=== PATIENT | female | born 1945 | race Two or more races ===

== ENCOUNTER 2021-01-20 15:06 | Inpatient (IN) | payer MEDICARE ==
[2021-01-20] VITALS (21 sets, daily range): BP systolic 38–120; BP diastolic 19–69
[~2021-01-20] VITALS: Ht 167.6 cm; Wt 56.2 kg
--- NOTE | 2021-01-20 15:44 | NUR ---
URINE COLLECTED AND SENT TO LAB
--- NOTE | 2021-01-20 15:48 | NUR ---
Brought by EMS to the emergency department, called 911. The patient was noted to be confused per report, her initial blood sugar in the field showed high According to the , the patient was last known well was yesterday, at about 10 AM Also, per report by the paramedics-the patient had an empty bottle of Percocet at bedside The patient is also known diabetic, the initial blood sugar showed HIGH
--- NOTE | 2021-01-20 15:49 | NUR ---
Hep-Lock initiated, septic work-up done-blood works sent to lab
[2021-01-20] MEDS ORDERED: CEFTRIAXONE 1GM BAG (ER ONLY) 50 ML IV ONE ×2 (16:00→16:12)
[2021-01-20] MEDS ORDERED: IV NS 0.9% 1,000 ML BAG IV ONE ×2 (16:00→17:30)
--- NOTE | 2021-01-20 16:27 | NUR ---
COVID ANTIGEN SWAB DONE AND SENT TO LAB
[2021-01-20 16:31] LABS: BILIRUBIN,URINE NEGATIVE (NEGATIVE); COLOR,URINE YELLOW (YELLOW); LEUKOCYTE ESTERASE ,URINE NEGATIVE (NEGATIVE); NITRITE, URINE NEGATIVE (NEGATIVE); PROTEIN,URINE 30 mg/dl (NEGATIVE); UGLUCOSE >=1000 mg/dL (NEGATIVE); UROBILINOGEN,URINE 0.2 EU/dL (0.2)
[2021-01-20 16:40] LABS: BASOPHILS # (AUTO) 0.1 K/uL (0.0-0.2); HEMATOCRIT 48 % (33-45); LYMPHOCYTES # (AUTO) 1.5 K/uL (0.8-4.8)
[2021-01-20 16:40] LABS: ABG BASE EXCESS -31.6 mmol/L; ABG OXYGEN SATURATION 89.3 % (92.0-98.5); ABG PH 6.804 (7.350-7.450); ABG PO2 69.9 mmHg (75.0-100.0); AaDO2 63.1 mmHg; COHb 0.1 % (0.5-1.5); MetHb 0.6 % (0.0-1.5); O2Hb 88.7 % (94.0-97.0); SITE, ABG Right Radial; VENT MODE, BG ROOM AIR
[2021-01-20 16:45] LABS: ALANINE AMINOTRANSFERASE 36 U/L (12-78); ALBUMIN 3.4 g/dL (3.4-5.0); ALKALINE PHOSPHATASE 122 U/L (46-116); ASPARTATE AMINOTRANSFERASE 26 U/L (15-37); BILIRUBIN,DIRECT 0.1 mg/dL (0.0-0.2); BILIRUBIN,TOTAL 0.4 mg/dL (0.2-1.0); CALCIUM, SERUM 8.5 mg/dL (8.5-10.1); CHLORIDE 91 mmol/L (98-107); CREATININE 2.2 mg/dL (0.6-1.3); POTASSIUM 4.6 mmol/L (3.5-5.1); SODIUM SERUM 126 mmol/L (136-145); TOTAL PROTEIN, SERUM 7.3 g/dL (6.4-8.2); UREA NITROGEN, BLOOD 27 mg/dL (7-18)
[2021-01-20 16:49] LABS: BASOPHILS % (AUTO) 0.3 % (0.0-2.0); HEMOGLOBIN 14.7 g/dL (11.5-14.8); MEAN CORPUSCULAR HGB CONC 30 g/dl (31.0-36.0); MEAN CORPUSCULAR VOLUME 102 fL (82-100); MONOCYTES # (AUTO) 3.1 K/uL (0.1-1.30); MONOCYTES % (AUTO) 12.2 % (2.0-12.0); NEUTROPHILS # (AUTO) 20.6 K/uL (1.8-8.9); NEUTROPHILS % (AUTO) 81.5 % (43.0-81.0); PLATELET COUNT (AUTO) 322 K/uL (150-450); RED BLOOD CELL COUNT(AUTO) 4.75 MIL/uL (4.0-5.2); WHITE BLOOD COUNT (AUTO) 25.3 K/uL (4.3-11.0)
[2021-01-20 16:54] LABS: CARBON DIOXIDE 7 mmol/L (21-32); GLUCOSE 789 mg/dL (74-106)
[2021-01-20 16:55] LABS: BACTERIA,URINE RARE /HPF (None Seen); FINE GRANULAR CASTS,URINE Few /LPF (None Seen); HYALINE CASTS, URINE Few /LPF (None Seen); MUCUS,URINE Few /LPF (None Seen)
[2021-01-20] MEDS ORDERED: ATOR40TA PO (17:15)
[2021-01-20] MEDS ORDERED: ALPR1TAB7 PO (17:15)
[2021-01-20] MEDS ORDERED: LEVO100T9 PO (17:15)
[2021-01-20] MEDS ORDERED: GLIM2TAB31 PO (17:15)
[2021-01-20] MEDS ORDERED: OXYC-133 PO (17:15)
[2021-01-20] MEDS ORDERED: TELM40TA8 PO (17:15)
--- NOTE | 2021-01-20 17:19 | NUR ---
room [id number]
[2021-01-20 17:29] LABS: BAND % (MANUAL) 6 % (0.0-5.0); LYMPHOCYTES % (MANUAL) 7 % (16-48); MONOCYTES % (MANUAL) 9 % (0-11.0); NEUTROPHILS % (MANUAL) 78 (42-76)
[2021-01-20] MEDS ORDERED: INSULIN REGULAR, HUMAN 100 UNIT in IV NS 0.9% 99 ML IV PRN ×2 (17:30→18:00)
[2021-01-20] MEDS ORDERED: Sodium Bicarbonate 150 MEQ in IV NS 0.9% 1,000 ML IV PRN (17:30)
--- NOTE | 2021-01-20 17:31 | NUR ---
report given to Mccarr RN - continue plan of care.
[2021-01-20] MEDS ORDERED: CEFTRIAXONE 1 G in IV D5W 50 ML IV SCH (18:00)
[2021-01-20] MEDS ORDERED: Z GUARD REMEDY 2 OZ OINT TP PRN (18:00)
[2021-01-20] MEDS ORDERED: ONDANSETRON HCL/PF 4 MG/2 ML VIAL IVP PRN (18:00)
--- NOTE | 2021-01-20 18:15 | NUR ---
LAND RESOURCE SPECIALIST NOTES PATIENT ADMITTED FROM ER, TELE SR-78 ,ALTERED MENTAL STATUS, DKA.T-96.6 COVERED WITH HOT BLANKET, STARTED INSULIN DRIP 7U, AND 2AMPS OF BICARB 125ML/HR. ON LEFT HAND INTACT. BOTELLO DRAINING VIA GRAVITY. BS SHOWS HI IN THE GLUCOMETER GET ORDER VIA GLUCOSE FROM LAB. ENDORSED ONCOMING NURSE CONTINUE COMPUTER QUESTIONER ASSESSMENT.
[2021-01-20] MEDS: Sodium Bicarbonate 100 MEQ in IV 1/2NS 1000 ML 1,000 ML IV SCH (18:26)
[2021-01-20] MEDS ORDERED: IV NS 0.9% 1,000 ML IV ONE (18:30)
--- NOTE | 2021-01-20 18:39 | NUR ---
RN NOTES BG SHOWING HI , DR ACEVEDO NOTIFIED , INSULIN DRIP STARTED AT 7U /HR PER DR CAMARENA ORDER .
[2021-01-20] MEDS: ENOXAPARIN SODIUM 30 MG/0.3 ML DISP.SYRIN SQ SCH (18:41)
--- NOTE | 2021-01-20 19:00 | NUR ---
RN NOTES UNABLE TO GET BS AT THIS TIME IN GLUCOMETER SHOWS HIGH, ORDERED GLUCOSE FROM LAB. INFUSING INSULIN DRIP 7U/HR.
[2021-01-20] MEDS: BLOOD SUGAR DIAGNOSTIC 1 EACH STRIP IN SCH ×6 (19:14→23:17)
--- NOTE | 2021-01-20 19:57 | NUR ---
RT NOTE Stat ABG taken and critical results reported to MD. Will continue to monitor closely.
[2021-01-20 20:05] LABS: ABG BASE EXCESS -29.6 mmol/L; ABG PCO2 9.3 mmHg (35.0-45.0); ABG PH 6.905 (7.350-7.450); AaDO2 43.3 mmHg; COHb 0.4 % (0.5-1.5); MetHb 0.3 % (0.0-1.5); O2Hb 98.3 % (94.0-97.0); SITE, ABG Right Brachial
[2021-01-20] MEDS: SODIUM BICARBONATE SYR 50 MEQ/50 ML DISP.SYRIN IV STA ×2 (20:15→20:38)
[2021-01-20] MEDS: INSULIN REGULAR, HUMAN 100 UNIT in IV NS 0.9% 99 ML IV PRN (20:15)
--- NOTE | 2021-01-20 20:30 | NUR ---
RN NOTES 1935 PM - RECEIVED DKA PATIENT WITH ALGORITHM #2 PROTOCOL FOR INSULIN DRIP. VERY LETHARGIC, UNABLE TO COMMUNICATE, WITH SHALLOW BREATHING ON O2 3LPM VIA NC SATURATION 96%. SR ON MONITOR. UNABLE TO READ TEMPERATURE ORALLY AND AXILLARY, RECTAL TEMP PLACED WITH 89.2 DEGREE FHARENHEIGHT. VICENTE DOMI INITIATED. BS CHECKED READ "HI" AT THIS TIME, AND ABG SHOWS BICARB OF 1.8 DESPITE OF PATIENT IS RUNNING BICARB DRIP AT 125 ML/HR INFORMED MATY BROOKS REVOLVING INVENTORY CLERK PER MATY SHE WILL CHANGE THE ORDER. 2009 PM - RECEIVED NEW ORDER TO PUSH I AMP OF BICARB RIGHT NOW, AND CHANGED THE PROTOCOL TO BS X 2 /100 = INSULIN DRIP RATE. NOTED AND CARRIED OUT ORDER. PATIENT IS MORE RESPONSIVE AT THIS TIME TO TACTILE STIMULI BUT UNABLE TO STATE HER NAME. WILL CLOSELY MONITOR.
[2021-01-20 20:44] LABS: CALCIUM, SERUM 7.9 mg/dL (8.5-10.1); CHLORIDE 101 mmol/L (98-107); CREATININE 1.9 mg/dL (0.6-1.3); POTASSIUM 3.8 mmol/L (3.5-5.1); SODIUM SERUM 135 mmol/L (136-145); UREA NITROGEN, BLOOD 28 mg/dL (7-18)
[2021-01-20 20:47] LABS: CARBON DIOXIDE 4 mmol/L (21-32); GLUCOSE 620 mg/dL (74-106)
--- NOTE | 2021-01-20 22:10 | NUR ---
RT NOTE ABG taken and critical Results reported to COIL MACHINE SUPERVISOR. Will continue to monitor closely
[2021-01-20 22:12] LABS: ABG BASE EXCESS -23.3 mmol/L; ABG PCO2 9.4 mmHg (35.0-45.0); ABG PH 7.137 (7.350-7.450); ABG PO2 147.3 mmHg (75.0-100.0); AaDO2 69.9 mmHg; COHb 0.7 % (0.5-1.5); MetHb 0.2 % (0.0-1.5); O2Hb 98.1 % (94.0-97.0); SITE, ABG Right Brachial; VENT MODE, BG Nasal Cannula
[2021-01-20] MEDS ORDERED: SODIUM BICARBONATE SYR 50 MEQ/50 ML DISP.SYRIN IV STA (22:30)
--- NOTE | 2021-01-20 22:30 | NUR ---
RN NOTES ABG RECHECKED BY RT WITH BICARB 3.1 WITH NEW ORDER TO PUSH ANOTHER 1 AMP OF BICARB AND REPEAT ABG IN 1 HOUR. NOTED AND CARRIED OUT ORDER.
[2021-01-21] VITALS (50 sets, daily range): BP systolic 80–155; BP diastolic 44–115
[2021-01-21] MEDS: BLOOD SUGAR DIAGNOSTIC 1 EACH STRIP IN SCH ×24 (00:08→23:03)
[2021-01-21 00:13] LABS: CALCIUM, SERUM 7.8 mg/dL (8.5-10.1); CHLORIDE 104 mmol/L (98-107); CREATININE 1.8 mg/dL (0.6-1.3); POTASSIUM 3.3 mmol/L (3.5-5.1); SODIUM SERUM 141 mmol/L (136-145); UREA NITROGEN, BLOOD 32 mg/dL (7-18)
[2021-01-21 00:15] LABS: CARBON DIOXIDE 10 mmol/L (21-32); GLUCOSE 372 mg/dL (74-106)
--- NOTE | 2021-01-21 00:22 | NUR ---
RT NOTE ABG TAKEN AND CRITICAL RESULTS NOTED. ABG REPORTED TO VASCULAR SURGEON. WILL CONTINUE TO MONITOR CLOSELY.
--- NOTE | 2021-01-21 00:30 | NUR ---
RN NOTES BICARB NOW 5.1 AFTER ABG RE-CHECK BY RT. DR. BROOKS ORDERED TO CONTINUE BICARB GTTS FOR NOW. ORDER NOTED AND CARRIED OUT.
[2021-01-21 00:33] LABS: ABG BASE EXCESS -18.1 mmol/L; ABG OXYGEN SATURATION 98.8 % (92.0-98.5); ABG PCO2 10.7 mmHg (35.0-45.0); ABG PH 7.294 (7.350-7.450); ABG PO2 125.3 mmHg (75.0-100.0); AaDO2 119.2 mmHg; COHb 0.7 % (0.5-1.5); MetHb 0.1 % (0.0-1.5); SITE, ABG Right Radial; VENT MODE, BG Nasal Cannula
[2021-01-21] MEDS ORDERED: NOREPINEPHRINE 8MG/250ML RTU 250 ML IV ONE (01:16)
[2021-01-21] MEDS ORDERED: NOREPINEPHRINE 8 MG in IV NS 0.9% 242 ML IV PRN (01:30)
[2021-01-21] MEDS: Sodium Bicarbonate 100 MEQ in IV 1/2NS 1000 ML 1,000 ML IV SCH ×2 (03:16→11:48)
[2021-01-21 04:05] LABS: BASOPHILS # (AUTO) 0.1 K/uL (0.0-0.2); BASOPHILS % (AUTO) 0.3 % (0.0-2.0); HEMATOCRIT 42 % (33-45); HEMOGLOBIN 14.1 g/dL (11.5-14.8); LYMPHOCYTES # (AUTO) 2.6 K/uL (0.8-4.8); LYMPHOCYTES % (AUTO) 13.7 % (20.0-44.0); MEAN CORPUSCULAR HGB CONC 34 g/dl (31.0-36.0); MEAN CORPUSCULAR VOLUME 93 fL (82-100); MONOCYTES # (AUTO) 1.9 K/uL (0.1-1.30); MONOCYTES % (AUTO) 9.9 % (2.0-12.0); NEUTROPHILS # (AUTO) 14.5 K/uL (1.8-8.9); NEUTROPHILS % (AUTO) 76.1 % (43.0-81.0); PLATELET COUNT (AUTO) 249 K/uL (150-450); RED BLOOD CELL COUNT(AUTO) 4.53 MIL/uL (4.0-5.2)
[2021-01-21 04:09] LABS: CALCIUM, SERUM 8.1 mg/dL (8.5-10.1); CARBON DIOXIDE 11 mmol/L (21-32); CHLORIDE 109 mmol/L (98-107); CREATININE 1.7 mg/dL (0.6-1.3); GLUCOSE 217 mg/dL (74-106); SODIUM SERUM 146 mmol/L (136-145); UREA NITROGEN, BLOOD 30 mg/dL (7-18)
[2021-01-21 04:12] LABS: CHOLESTEROL 209 mg/dL (<200); HDL CHOLESTEROL 43 mg/dL (40-60); LDL 121 mg/dL (0-99); TRIGLYCERIDES 174 mg/dL (30-150)
[2021-01-21] MEDS: INSULIN REGULAR, HUMAN 100 UNIT in IV NS 0.9% 99 ML IV PRN ×2 (04:17→21:17)
[2021-01-21 04:19] LABS: PHOSPHORUS 0.6 mg/dL (2.5-4.9); POTASSIUM 2.5 mmol/L (3.5-5.1)
--- NOTE | 2021-01-21 04:25 | NUR ---
RN NOTE CRITICAL LAB VALUE REPORTED FROM LAB ABOUT POTASSIUM BEING 2.5, PHOS=0.6, AND ANION GAP 28.5. SPOKE WITH DR. BROOKS AND DR. BROOKS ORDERED TO CONTINUE BICARB GTTS AND INSULIN GTTS AND ORDERED POTASSIUM PHOS 15 MMOLX1. MD ALSO ORDERED MAG/PHOS/ABG LABS AT 0800. ORDER NOTED AND CARRIED OUT.
[2021-01-21] MEDS ORDERED: POTASSIUM PHOSPHATE MM 15 MMOL in IV NS 0.9% 250 ML IV ONE (05:00)
--- NOTE | 2021-01-21 05:00 | NUR ---
RN NOTE SPOKE WITH NURSING NUMERICAL CONTROL ROUTER OPERATOR SE ABOUT DR. BROOKS ORDERING POTASSIUM PHOS 15 MMOL IV. NURSING NUMERICAL CONTROL ROUTER OPERATOR MENTIONED THAT PHARMACY HAS TO MAKE THAT AND THAT THEY WILL ARRIVE AROUND 0630. INFORMED DR. BROOKS AND DR. BROOKS ORDERED TO START KCL 40 MEQ (4 BAGS), BUT SOON THE K PHOS IS READY, OKAY TO DC THE REMAINING KCL BAGS THAT HAVE NOT BEEN GIVEN YET. ORDER NOTED AND CARRIED OUT.
[2021-01-21] MEDS: POTASSIUM CL. PREMIX PERIPHER. 50 ML IV SCH ×14 (05:37→23:18)
--- NOTE | 2021-01-21 07:24 | NUR ---
RN NOTE PT IS IN BED RESTING. PT'S LAST TEMPERATURE CHECK WAS WNL AND BP IS WNL. LAST ACCUCHECK WAS 125. PT IS ON 1L OF O2 VIA NC SHOWING NO S/S OF RESP DISTRESS/SOB. A/OX2. PT IS STILL LETHARGIC. PT SHOWING NSR-ST ON MONITOR. SKIN INTACT. IV ACCESS NOTED ON LEFT HAND #20 AND RIGHT AC #20. LINES FLUSHED, PATENT, AND INTACT WITH NO SIGNS OF INFILTRATION. ALL DUE MEDS GIVEN ORDERED. PT KEPT CLEAN AND COMFORTABLE. ALL SAFETY MEASURES IMPLEMENTED. WILL ENDORSE TO MORNING SHIFT RN FOR FORTUNATO.
[2021-01-21] MEDS ORDERED: LEVOTHYROXINE INJ 500 MCG VIAL IV SCH (07:30)
--- NOTE | 2021-01-21 07:43 | NUR ---
WATCH ADJUSTER OPENING NOTE Patient is awake, follows with eyes, disoriented Alert to stimuli, not oriented. On 1 liter via nasal cannula, no respiratory distress, no SOB. NPO, Left hand/RAC IV site with no s/sx of infiltration. On insulin drip 2.5 unit/hr. Running IV KCL 10meq/50ml. Wrist soft restraints in place with no circulations issues noted. Safety precautions implemented, bed locked in lowest position, call light within reach.
[2021-01-21 08:04] LABS: ABG BASE EXCESS -8.8 mmol/L; ABG OXYGEN SATURATION 98.2 % (92.0-98.5); ABG PCO2 14.4 mmHg (35.0-45.0); ABG PO2 94.7 mmHg (75.0-100.0); AaDO2 59.3 mmHg; COHb 0.2 % (0.5-1.5); MetHb 0.1 % (0.0-1.5); O2Hb 97.9 % (94.0-97.0); SITE, ABG Right Radial; VENT MODE, BG NASAL CANNULA
[2021-01-21] MEDS: POTASSIUM PHOSPHATE MM 7.5 MMOL in IV NS 0.9% 100 ML IV SCH ×2 (08:08→11:34)
[2021-01-21 08:58] LABS: CARBON DIOXIDE 16 mmol/L (21-32); CHLORIDE 110 mmol/L (98-107); CREATININE 1.6 mg/dL (0.6-1.3); GLUCOSE 135 mg/dL (74-106); MAGNESIUM 1.7 mg/dL (1.8-2.4); SODIUM SERUM 148 mmol/L (136-145); UREA NITROGEN, BLOOD 29 mg/dL (7-18)
[2021-01-21 09:21] LABS: PHOSPHORUS 0.5 mg/dL (2.5-4.9); POTASSIUM 2.3 mmol/L (3.5-5.1)
[2021-01-21] MEDS ORDERED: Potassium Chloride 40 MEQ in IV D5/ 0.9% NACL 1,000 ML IV PRN (09:30)
--- NOTE | 2021-01-21 09:35 | NUR ---
RN NOTE Informed Dr. Becerra K=2.3, Phosphorus=0.5. Continue current meds.
--- NOTE | 2021-01-21 11:37 | NUR ---
RN NOTE Informed Dr. Becerra, HCO3=11, pH ABG=7.5. Has order for Na Bicarb 100meq schedule. Per MD continue for now.
--- NOTE | 2021-01-21 11:40 | NUR ---
RN NOTE Received verbal order from Dr. Bradley to start D5 NS K-40meq @175cc/hr, noted and carried out. reviewed latest BMP and current B/S levels. Addendum: 01/21/21 at 1142 by KEVYN MILLIGAN RN [id number].
--- NOTE | 2021-01-21 12:36 | NUR ---
RN NOTE Seen and examined by Dr. Becerra with order for KCL 10MEQ IV X 4 doses. Noted and carried out. Addendum: 01/21/21 at 1242 by KEVYN MILLIGAN RN Patient continues on D5 NS 40meq @175cc/hr, per MD since she is on insulin drip her K will continue to drop. Continue to give KCL 10meq IV X 4 doses.
[2021-01-21 12:49] LABS: CALCIUM, SERUM 6.1 mg/dL (8.5-10.1); CREATININE 1.1 mg/dL (0.6-1.3)
[2021-01-21] MEDS ORDERED: POTASSIUM CHLORIDE 10 MEQ/50 ML PREMIXED IVPB FOR PERIPHERAL LINE IV ONE (13:00)
[2021-01-21 13:21] LABS: POTASSIUM 1.7 mmol/L (3.5-5.1)
[2021-01-21] MEDS: Magnesium 1GM/D5W 100ML PREMIX 100 ML IV SCH ×2 (13:21→14:25)
[2021-01-21] MEDS ORDERED: Sodium Phosphate 30 MMOL in IV NS 0.9% 250 ML IV SCH (14:00)
[2021-01-21] MEDS ORDERED: POTASSIUM PHOSPHATE MM 15 MMOL in IV NS 0.9% 250 ML IV SCH (15:00)
[2021-01-21] MEDS: POTASSIUM PHOSPHATE MM 15 MMOL in IV NS 0.9% 250 ML IV SCH ×2 (15:43→23:18)
--- NOTE | 2021-01-21 17:00 | NUR ---
RN NOTE Seen and examined by Dr. Rendon, gave order to D/C Na Bicarb IV, acetaminophen level and will increase K order to 100meq. Noted and carried out.
[2021-01-21 17:37] LABS: CALCIUM, SERUM 7.8 mg/dL (8.5-10.1); CREATININE 1.3 mg/dL (0.6-1.3)
[2021-01-21 17:45] LABS: POTASSIUM 2.5 mmol/L (3.5-5.1)
--- NOTE | 2021-01-21 18:00 | NUR ---
RN NOTE Dr. Becerra made aware K=2.5, Anion gap=15, latest B/S 105mg/dl. Per MD continue insulin drip and current meds as ordered.
--- NOTE | 2021-01-21 18:29 | NUR ---
RN NOTE 1829- K IV dose not given patient restless pulled out IV.
[2021-01-21] MEDS: ENOXAPARIN SODIUM 30 MG/0.3 ML DISP.SYRIN SQ SCH (18:49)
[2021-01-21] MEDS: CEFTRIAXONE 1 G in IV D5W 50 ML IV SCH (18:54)
--- NOTE | 2021-01-21 19:12 | NUR ---
SR TECHNICAL SALES CONSULTANT CLOSING NOTE Patient is A/O X 2, confused answers simple questions. No respiratory distress, no SOB. Sinus rhythm/sinus tach. Currently on Regular insulin drip 1.86, last B/S 93mg/dl. On D5 NS 40meq @175cc/hr. Currently running K10meq IV as well and K phosphate. Wrist restraints in place, patient tends to remove lines while sleeping. AM/PM care rendered. F/C in place draining evi urine. Ex- visited Grace Erickson [phone]. Safety precautions implemented, bed locked in lowest position, call light within reach.
--- NOTE | 2021-01-21 19:48 | NUR ---
RN NOTES RECEIVED PATIENT LETHARGIC BUT ABLE TO MENTION NAME AND AGE. NO ACUTE RESPIRATORY DISTRESS. NO SOB SATUATION 97%. SR ST ON MONITOR. WITH O2 1LPM VIA NC. TOLERATED WELL SATURATION 99%. AFEBRILE TEMP 99 WITH COLD EXT. PATIENT HAS GOOD PULSES. IV SITE ON LT HAND AND PALLAVI ML RUNNNG WITH D5 NACL+40 MEQ KCL @ 175 ML/HR, KCL 10 MEQ INSULIN @ 1.98 U/HR AND POTASSIUM PHOSPHATE @ 36.43ML/HR AND MAGNESIUM TOLERATED WELL. KEPT PT CLEAN AND COMFORTABLE IN BED. ENCOURAGED TO USE [facility] TFOR ASSISTANCE. RESTRAINT KEPT IN PLACED DUE TO EPISODE OF PULLING OUT GOWN AND LINES. TURN AND REPOSITION INITIATED. WILL CONTINUE POC.
[2021-01-21 22:42] LABS: CALCIUM, SERUM 7.9 mg/dL (8.5-10.1); CREATININE 1.1 mg/dL (0.6-1.3); POTASSIUM 3.8 mmol/L (3.5-5.1)
--- NOTE | 2021-01-21 23:15 | NUR ---
RN NOTES INFORMED EDUARDO JUNIOR SLEEVE TURNER HOUSEKEEPING ROOM INSPECTOR REGARDING OF ANION GAP 16, POTASSIUM OF 3.8 AND THAT BS ITS BEEN CONSECUTIVE <140 MG/DL. PATIENT WILL STILL RUNNING 2 MORE KCL BAG IN OVER ALL TOTAL OF 100 MEQ, 2ND BAG OF POTASSIUM PHOSPATE 15 MMOL, INSULIN DRIP AT 2U/ HR AND IVF D5 NACL+40 MEQ POTASSIUM. PER ONCALL SHE WILL PLACE AN ORDER..
[2021-01-21] MEDS ORDERED: DEXTROSE 50%-WATER 50 ML DISP.SYRIN IV PRN (23:30)
[2021-01-22] VITALS (42 sets, daily range): BP systolic 77–146; BP diastolic 42–83
[2021-01-22] MEDS: IV NS 0.9% 1,000 ML IV PRN ×2 (00:36→16:00)
[2021-01-22 04:33] LABS: BASOPHILS % (AUTO) 0.1 % (0.0-2.0); HEMATOCRIT 36 % (33-45); HEMOGLOBIN 12.1 g/dL (11.5-14.8); LYMPHOCYTES # (AUTO) 0.9 K/uL (0.8-4.8); MEAN CORPUSCULAR HGB CONC 34 g/dl (31.0-36.0); MEAN CORPUSCULAR VOLUME 91 fL (82-100); MONOCYTES # (AUTO) 0.9 K/uL (0.1-1.30); MONOCYTES % (AUTO) 5.9 % (2.0-12.0); NEUTROPHILS # (AUTO) 13.5 K/uL (1.8-8.9); PLATELET COUNT (AUTO) 191 K/uL (150-450); RED BLOOD CELL COUNT(AUTO) 3.92 MIL/uL (4.0-5.2); WHITE BLOOD COUNT (AUTO) 15.3 K/uL (4.3-11.0)
[2021-01-22 04:56] LABS: THYROID STIMULATING HORMONE 0.671 uIU/mL (0.358-3.74)
[2021-01-22 05:14] LABS: ALANINE AMINOTRANSFERASE 31 U/L (12-78); ALKALINE PHOSPHATASE 75 U/L (46-116); ASPARTATE AMINOTRANSFERASE 43 U/L (15-37); BILIRUBIN,TOTAL 0.2 mg/dL (0.2-1.0); CALCIUM, SERUM 7.4 mg/dL (8.5-10.1); CARBON DIOXIDE 17 mmol/L (21-32); CHLORIDE 114 mmol/L (98-107); GLUCOSE 194 mg/dL (74-106); PHOSPHORUS 2.2 mg/dL (2.5-4.9); POTASSIUM 3.6 mmol/L (3.5-5.1); SODIUM SERUM 149 mmol/L (136-145); TOTAL PROTEIN, SERUM 5.3 g/dL (6.4-8.2); UREA NITROGEN, BLOOD 20 mg/dL (7-18)
[2021-01-22 05:43] LABS: ALBUMIN 2.4 g/dL (3.4-5.0)
--- NOTE | 2021-01-22 06:59 | NUR ---
RN NOTES PATIENT STABLE AT THIS TIME WITH EPISODE OF CONFUSION AOX 2. ABLE TO VERBALIZED WANTS AND NEEDS. TOLERATED ROOM AIR SATURATION 99%. AFEBRILE. VSS WITHOUT PRESSOR TO START. SR ON MONITOR. IV SITE ON LFA AND PALLAVI MIDLINE INTACT AND PATENT WITH ONGOING NS @ 75 ML/HR,. KEPT PATIENT CLEAN AND DRY. KEPT RESTRAINT IN PLACED DUE TO EPISODE OF TRYING TO GET OOB. KEPT CLEAN AND DRY WILL CONTINUE POC.
[2021-01-22] MEDS ORDERED: LEVOTHYROXINE INJ 100 MCG VIAL IV SCH (07:30)
--- NOTE | 2021-01-22 08:00 | NUR ---
rn notes RECEIVED PATIENT AT THIS TIME A/ AOX 2 WITH CONFUSION. ABLE TO VERBALIZED WANTS AND NEEDS, ROOM AIR SATURATION 99%. AFEBRILE. VSS, SR, NO ACUTE RESPIRATORY DISTRESS, REFUSED PAIN AT THIS TIME. IV SITE ON LFA AND PALLAVI MIDLINE INTACT AND PATENT WITH ONGOING NS @ 75 ML/HR. KEPT PATIENT CLEAN AND DRY. D/C RESTRAIN. PATIENT TOLERATED BREAKFAST 20% SELF. WILL FOLLOW UP.
[2021-01-22] MEDS: BLOOD SUGAR DIAGNOSTIC 1 EACH STRIP IN SCH ×4 (09:06→21:49)
[2021-01-22] MEDS: INSULIN REGULAR, HUMAN 100 UNIT/ML 3 ML VIAL SQ PRN ×4 (09:20→21:52)
[2021-01-22 10:31] LABS: CALCIUM, SERUM 7.5 mg/dL (8.5-10.1); POTASSIUM 3.4 mmol/L (3.5-5.1)
[2021-01-22] MEDS: POTASSIUM CL. PREMIX PERIPHER. 50 ML IV SCH ×2 (11:06→12:08)
[2021-01-22] MEDS ORDERED: NEUTRA PHOS 1 POWD.PACKET NG ONE (12:00)
--- NOTE | 2021-01-22 12:00 | NUR ---
RN NOTES BS-249MG/DL COVERAGE GIVEN, PATIENT TOLERATED LUNCH 25% SELF. A/O X3. ADMINISTERED SCHEDULED MEDICATION. SEEN PATIENT VIA HOSPITALIST Dr HORVATH AND GET VERBAL ORDER DOWNGRADE PATIENT TO THE MED/SURGE ORDER TAKEN AND CARRIED OUT. PATIENT REFUSED PAIN AT THIS. D/C RESTRAIN ORDER.
[2021-01-22] MEDS: CEFTRIAXONE 1 G in IV D5W 50 ML IV SCH (18:11)
--- NOTE | 2021-01-22 18:30 | NUR ---
RN NOTES PATIENT STABLE DUE MEDICATION ADMINISTERED, PM CARE DONE, REFUSED PAIN, PATIENT WILL TRANSFER TO THE MED/SURGE UNIT ROOM 308 . INFUSING NS@75ML/HR ON PALLAVI MIDLINE INTACT. GIVEN REPORT BY PHONE. BOTELLO DRAINING LIGHT YELLOW OUTPUT 1100ML. ALSO ENDORSED ONCOMING NURSE FORTUNATO.
[2021-01-22] MEDS: ENOXAPARIN SODIUM 30 MG/0.3 ML DISP.SYRIN SQ SCH (18:34)
--- NOTE | 2021-01-22 19:00 | NUR ---
rn notes bedside report given med/surge RN follow plan of care.patient stable, vss.
--- NOTE | 2021-01-22 19:40 | NUR ---
MS RN OPENING NOTES: RECEIVED REPORTS FROM SOLUTION MANAGER AT THE BEDSIDE. PATIENT IS AWAKE. A/O X3. NO S/S OF DISTRESS NOTED. NO COMPLAIN OF PAIN. CALL LIGHT WITHIN REACH. BED ALARM ON. BED IN LOWEST AND LOCKED POSITION. HOB ELEVATED. WITH BOTELLO CATHETER INTACT, DRAINING CLEAR YELLOW URINE OUTPUT.PATIENT IS CALM AND COOPERATIVE AT THIS TIME.
[2021-01-22] MEDS: INSULIN GLARGINE, 100 UNIT/ML CARTRIDGE SQ SCH (22:02)
[2021-01-23] MEDS: IV NS 0.9% 1,000 ML IV PRN (04:36)
--- NOTE | 2021-01-23 06:34 | NUR ---
BOTELLO CATHETER REMOVED PER PATIENT'S REQUEST. DUE TO VOID, WILL ENDORSE TO THE NEXT SHIFT RN.
[2021-01-23] MEDS: BLOOD SUGAR DIAGNOSTIC 1 EACH STRIP IN SCH ×4 (06:58→21:35)
[2021-01-23] MEDS: INSULIN REGULAR, HUMAN 100 UNIT/ML 3 ML VIAL SQ PRN ×4 (06:58→21:30)
[2021-01-23 07:15] LABS: BASOPHILS % (AUTO) 0.5 % (0.0-2.0); EOSINOPHILS % (AUTO) 0.4 % (0.0-6.0); HEMATOCRIT 32 % (33-45); HEMOGLOBIN 10.8 g/dL (11.5-14.8); LYMPHOCYTES # (AUTO) 1.6 K/uL (0.8-4.8); LYMPHOCYTES % (AUTO) 14.5 % (20.0-44.0); MEAN CORPUSCULAR HGB CONC 34 g/dl (31.0-36.0); MEAN CORPUSCULAR VOLUME 91 fL (82-100); MONOCYTES # (AUTO) 0.7 K/uL (0.1-1.30); MONOCYTES % (AUTO) 6.5 % (2.0-12.0); NEUTROPHILS # (AUTO) 8.5 K/uL (1.8-8.9); NEUTROPHILS % (AUTO) 78.1 % (43.0-81.0); PLATELET COUNT (AUTO) 169 K/uL (150-450); RED BLOOD CELL COUNT(AUTO) 3.47 MIL/uL (4.0-5.2); WHITE BLOOD COUNT (AUTO) 10.9 K/uL (4.3-11.0)
--- NOTE | 2021-01-23 07:44 | NUR ---
RECEIVED PATIENT IN BED, AWAKE. A/O X 3. ON ROOM AIR, BREATHING EVENLY AND NONLABORED. NO S/S OF DISTRESS NOTED. NO COMPLAINS OF PAIN. IV ACCESS ON PALLAVI MIDLINE, NS RUNNING AT 75 ML/HR AND LFA #20 SL, BOTH INTACT AND PATENT. SAFETY PRECAUTIONS IN PLACE: BED IN LOWEST AND LOCKED POSITION, BED ALARM ON, SIDERAILS UP X 2, CALL LIGHT WITHIN REACH. WILL CONTINUE TO MONITOR PATIENT. Addendum: 01/23/21 at 0800 by DIPESH MAX RN RN OPENING NOTES
[2021-01-23 08:11] LABS: CREATININE 0.6 mg/dL (0.6-1.3); MAGNESIUM 1.8 mg/dL (1.8-2.4); POTASSIUM 4.9 mmol/L (3.5-5.1)
[2021-01-23] MEDS: LEVOTHYROXINE SODIUM 100 MCG TABLET PO SCH (08:52)
[2021-01-23] MEDS: ACETAMINOPHEN 325 MG TABLET PO PRN ×2 (09:40→20:54)
[2021-01-23 16:00] VITALS: BP 104/64
[2021-01-23] MEDS ORDERED: K PHOS NEUTRAL 250 MG TABLET PO ONE (16:30)
[2021-01-23] MEDS: CEFTRIAXONE 1 G in IV D5W 50 ML IV SCH (17:04)
--- NOTE | 2021-01-23 18:12 | NUR ---
MS RN CLOSING NOTE PATIENT IN BED, AWAKE RESTING COMFORTABLY. A/O X 3. ON ROOM AIR. NO SOB AND NO S/S OF DISTRESS NOTED. NO COMPLAINS OF PAIN AT THIS TIME. IV ACCESS ON PALLAVI MIDLINE, NS RUNNING AT 75 ML/HR AND LFA #20 SL, BOTH INTACT AND PATENT. SAFETY PRECAUTIONS IN PLACE: BED IN LOWEST AND LOCKED POSITION, SIDERAILS UP X 2, CALL LIGHT WITHIN REACH. WILL ENDORSE TO SWINGING CUT OFF SAW OPERATOR FOR FORTUNATO.
--- NOTE | 2021-01-23 19:30 | NUR ---
RN OPENING NOTE PATIENT IN BED, AWAKE. PATIENT IS ABLE TO MAKE NEEDS KNOWN, A/O X 3. PATIENT IS ON RA TOLERATING WELL, DOES NOT COMPLAIN OF ANY PAIN AT THIS TIME. PATIENT HAS A PALLAVI MIDLINE WITH NS @ 75 ML/HR. LFA 20 G, TENDER AND OCCLUDED, WILL REMOVE. SAFETY MEASURES IN PLACE: BED LOCKED AND IN LOWEST POSITION, CALL LIGHT WITHIN REACH, SIDE RAILS UP, BED ALARM ON. WILL MONITOR PATIENT CLOSELY.
[2021-01-23 20:00] VITALS: BP 98/60
--- NOTE | 2021-01-23 20:55 | NUR ---
RN NOTE PATIENT GIVEN TYLENOL FOR MILD BACK PAIN. WILL REASSESS EFFECTIVENESS.
[2021-01-23] MEDS ORDERED: ENOXAPARIN SODIUM 40 MG/0.4 ML DISP.SYRIN SQ SCH (21:00)
[2021-01-23] MEDS: INSULIN GLARGINE, 100 UNIT/ML CARTRIDGE SQ SCH (21:29)
--- NOTE | 2021-01-23 22:00 | NUR ---
RN NOTE BS 179 MG/DL. 3 UNITS REGULAR INSULIN GIVEN. WILL MONITOR FOR HYPOGLYCEMIA. PATIENT'S MIDLINE ACCIDENTLY PULLED OUT BY PATIENT WHEN SHE WAS TURNING, REFUSES NEW PIV INSERTION, MD AWARE. EDUCATION GIVEN REGARDING HAVING PIV ON.
[2021-01-24] MEDS: INSULIN REGULAR, HUMAN 100 UNIT/ML 3 ML VIAL SQ PRN ×2 (06:14→11:34)
[2021-01-24] MEDS: BLOOD SUGAR DIAGNOSTIC 1 EACH STRIP IN SCH ×2 (06:35→11:16)
--- NOTE | 2021-01-24 06:43 | NUR ---
RN CLOSING NOTE PATIENT IN BED, AWAKE. PATIENT IS ABLE TO MAKE NEEDS KNOWN, A/O X 3. PATIENT IS ON RA TOLERATING WELL, DOES NOT COMPLAIN OF ANY PAIN. BS 151 MG/DL, 2 UNITS OF REGULAR INSULIN ADMINISTERED. PATIENT DOES NOT HAVE ANY IV ACCESS AT THIS TIME AND STILL REFUSES TO HAVE ONE PLACED. PAIN MANAGED WITH TYLENOL. D/C PLANNING THIS AM. SAFETY MEASURES IMPLEMENTED. ALL NEEDS MET AND ATTENDED. ALL ORDERS CARRIED OUT. WILL ENDORSE TO DAY SHIFT NURSE FOR FORTUNATO.
--- NOTE | 2021-01-24 07:55 | NUR ---
MS RN OPENING NOTE RECEIVED PATIENT IN BED, AWAKE, A/O X3. PATIENT IS ON ROOM AIR; BREATHING EVEN AND UNLABORED. ABLE TO MAKE NEEDS KNOWN. NO COMPLAINS OF PAIN AT THIS TIME. PATIENT DOES NOT HAVE ANY IV ACCESS AT THIS TIME AND STILL REFUSES TO HAVE ONE PLACED. D/C PLANNING THIS AM. SAFETY MEASURES IN PLACE; BED IN LOW POSITION AND LOCKED, RAILS UP X2, CALL LIGHT WITHIN REACH. WILL CONTINUE TO MONITOR PATIENT.
[2021-01-24] MEDS: LEVOTHYROXINE SODIUM 100 MCG TABLET PO SCH (08:14)
[2021-01-24 08:59] VITALS: BP_SYST 121; BP_SYST 149; BP_DIAS 74; BP_DIAS 81
[2021-01-24] MEDS ORDERED: K PHOS NEUTRAL 250 MG TABLET PO ONE (11:00)
--- NOTE | 2021-01-24 13:43 | NUR ---
MS MANAGER MENTAL HEALTH NOTES: PATIENT DISCHARGED HOME IN MEDICALLY STABLE CONDITION. PATIENT A/O X3 ABLE TO MAKE NEEDS KNOWN. ALL DISCHARGE PAPERWORK READY AND SIGNED BY PATIENT. DISCHARGE INSTRUCTIONS PROVIDED TO PATIENT REGARDING PHYSICIAN DISCHARGE INSTRUCTIONS AND PRESCRIPTION; PATIENT VERBALIZED UNDERSTANDING. BELONGINGS ACCOUNTED FOR AND FORM SIGNED WELL. PERSONAL MEDS PICKED UP FROM THE PHARMACY AND RETURNED TO PATIENT. IV ACCESS REMOVED. WRISTBAND REMOVED WELL. PATIENT LEFT THE FLOOR VIA WHEELCHAIR ACCOMPANIED BY GEOSPATIAL INTELLIGENCE ANALYST AND . PATIENT HELF THE HOSPITAL IN A PRIVATE CAR.
== END 2021-01-24 15:07 | disposition home or self-care (01) | DRG 637 ==
LOC: ER 15:11 → ICU 17:27 → MED 01-22 19:34
PROVIDERS: ADMIT Internal Medicine
PROC: 05H633Z Insertion of Infusion Device into Left Subclavian Vein, Percutaneous Approach (ICD-10-PCS; principal; 2021-01-21)
PROC: B547ZZA Ultrasonography of Left Subclavian Vein, Guidance (ICD-10-PCS; 2021-01-21)
PROC: 05H533Z Insertion of Infusion Device into Right Subclavian Vein, Percutaneous Approach (ICD-10-PCS; 2021-01-22)
PROC: B546ZZA Ultrasonography of Right Subclavian Vein, Guidance (ICD-10-PCS; 2021-01-22)
DX: E11.10 Type 2 diabetes mellitus with ketoacidosis without coma (principal); G93.41 Metabolic encephalopathy; N17.0 Acute kidney failure with tubular necrosis; N39.0 Urinary tract infection, site not specified; I10 Essential (primary) hypertension; E03.9 Hypothyroidism, unspecified; E78.5 Hyperlipidemia, unspecified; E83.39 Other disorders of phosphorus metabolism; E87.6 Hypokalemia; E83.42 Hypomagnesemia; T40.2X1A Poisoning by other opioids, accidental (unintentional), initial encounter; T42.4X1A Poisoning by benzodiazepines, accidental (unintentional), initial encounter; Y92.009 Unspecified place in unspecified non-institutional (private) residence as the place of occurrence of the external cause; Z87.891 Personal history of nicotine dependence; Z79.84 Long term (current) use of oral hypoglycemic drugs; Z20.822 Contact with and (suspected) exposure to COVID-19
CPT/HCPCS: 36410; 36415; 36600; 71045-TC; 80048-TC; 80053-TC; 80061-TC; 80076-TC; 81001; 82803-TC; 82947-TC; 82962-TC; 83605-TC; 83735-TC; 83880; 84100-TC; 84443-TC; 84484-TC; 85025-TC; 85730-TC; 87040-TC; 87081-TC; 87086-TC; 94799-TC; 97116-TC; 97530-TC; G0378; J0696; J1650; J1815; J2405; J3475; J3480; J3490; J7030; J7042; J7050; J7060

== ENCOUNTER 2024-02-25 08:59 | Emergency (ER) | payer BC, MEDICARE ==
[~2024-02-25] VITALS: Ht 167.6 cm; Wt 58.5 kg
[~2024-02-25 08:59] MED LIST: ALPR1TAB7 PO; ATOR40TA PO; LEVO100T9 PO; OXYC-133 PO; TELM40TA8 PO
[2024-02-25 11:46] LABS: BASOPHILS % (AUTO) 0.4 % (0.0-2.0); EOSINOPHILS % (AUTO) 0.1 % (0.0-6.0); HEMATOCRIT 45 % (33-45); HEMOGLOBIN 14.5 g/dL (11.5-14.8); LYMPHOCYTES # (AUTO) 1.1 K/uL (0.8-4.8); LYMPHOCYTES % (AUTO) 13.4 % (20.0-44.0); MEAN CORPUSCULAR HEMOGLOBIN 29 PG (26.0-33.0); MEAN CORPUSCULAR HGB CONC 32 g/dl (31.0-36.0); MEAN CORPUSCULAR VOLUME 90 fL (82-100); MONOCYTES # (AUTO) 0.5 K/uL (0.1-1.30); MONOCYTES % (AUTO) 5.6 % (2.0-12.0); NEUTROPHILS # (AUTO) 6.7 K/uL (1.8-8.9); NEUTROPHILS % (AUTO) 80.5 % (43.0-81.0); PLATELET COUNT (AUTO) 288 K/uL (150-450); RED BLOOD CELL COUNT(AUTO) 4.97 MIL/uL (4.0-5.2); RED CELL DISTRIBUTION WIDTH 14.4 % (11.5-15.0); WHITE BLOOD COUNT (AUTO) 8.4 K/uL (4.3-11.0)
[2024-02-25 11:54] LABS: CALCIUM, SERUM 9.2 mg/dL (8.5-10.1); CARBON DIOXIDE 21 mmol/L (21-32); CHLORIDE 103 mmol/L (98-107); CREATININE 0.8 mg/dL (0.6-1.3); GLUCOSE 287 mg/dL (74-106); POTASSIUM 3.7 mmol/L (3.5-5.1); SODIUM SERUM 138 mmol/L (136-145); UREA NITROGEN, BLOOD 16 mg/dL (7-18)
[2024-02-25 12:00] LABS: ALANINE AMINOTRANSFERASE 19 U/L (12-78); ALKALINE PHOSPHATASE 226 U/L (46-116); ASPARTATE AMINOTRANSFERASE 11 U/L (15-37); BILIRUBIN,DIRECT 0.1 mg/dL (0.0-0.2); BILIRUBIN,TOTAL 0.4 mg/dL (0.2-1.0); TOTAL PROTEIN, SERUM 7.5 g/dL (6.4-8.2)
[2024-02-25] MEDS ORDERED: ACETAMINOPHEN 325 MG TABLET ONE (12:01)
[2024-02-25] MEDS: ACETAMINOPHEN 325 MG TABLET PO ONE (12:02)
[2024-02-25] MEDS ORDERED: ACET1TAB22 PO ×2 (14:03→14:06)
[2024-02-25] MEDS ORDERED: OXYC-128 PO (14:26)
[2024-02-25 14:30] VITALS: BP 138/77; TEMP 98.8; O2SAT 97
== END 2024-02-25 14:40 | disposition home or self-care (01) ==
LOC: ER 09:15
DX: S32.591A Other specified fracture of right pubis, initial encounter for closed fracture (principal); M25.561 Pain in right knee; R94.31 Abnormal electrocardiogram [ECG] [EKG]; E11.9 Type 2 diabetes mellitus without complications; I10 Essential (primary) hypertension; Z79.899 Other long term (current) drug therapy; Z88.5 Allergy status to narcotic agent; W18.39XA Other fall on same level, initial encounter; Y93.89 Activity, other specified; Y92.89 Other specified places as the place of occurrence of the external cause; Y99.8 Other external cause status
CPT/HCPCS: 36415; 71045-TC; 72192-TC; 73552; 73562; 80048-TC; 80076-TC; 84484-TC; 85025-TC